=== PATIENT | male | born 1985 | race Caucasian/White ===

== ENCOUNTER 2021-06-04 11:25 | Emergency (ER) | payer OTHER ==
[2021-06-04 12:08] LABS: BILIRUBIN NEGATIVE (NEGATIVE); BLOOD 3+ Ery/uL (NEGATIVE); COLOR YELLOW (YELLOW); GLUCOSE (U) NORMAL (NORMAL); LEUKOCYTES NEGATIVE Leu/uL (NEGATIVE); NITRITE NEGATIVE (NEGATIVE); PROTEIN NEGATIVE (NEGATIVE); SPECIFIC GRAVITY 1.015 (1.001-1.030); UROBILINOGEN 0.2 mg/dL (0.2-1.0); pH 8.5 (5.0-9.0)
[2021-06-04 12:10] LABS: CLARITY CLOUDY (CLEAR)
[2021-06-04 12:16] LABS: AMORPHOUS URATES CRYSTALS LARGE; BACTERIA 1+; URINARY RBC 20-50
[2021-06-04 12:59] LABS: BASOPHIL 0.7 % (0-2); EOSINOPHIL 0.4 % (0-5); HCT 38.6 % (42.0-52.0); HGB 13.3 g/dl (13.2-18.0); LYMPHOCYTE 16.3 % (15-48); MCH 33.2 pg (25.0-31.0); MCHC 34.5 g/dL (32.0-36.0); MCV 96.3 fL (78.0-100.0); MONOCYTE 7.1 % (0-12); MPV 8.9 fL (6.0-9.5); NRBC 0; PLT 212 K/uL (150-400); RBC 4.01 M/uL (4.70-6.00); RDW 12.8 % (11.5-14.0); WBC 5.6 K/uL (4.0-10.5)
[2021-06-04 13:16] LABS: POTASSIUM 3.5 mmol/L (3.5-5.1)
[2021-06-04] MEDS ORDERED: NORCO 5-325 TA1 EACH PO (14:19)
[2021-06-04] MEDS ORDERED: FLOMAX0.4 MG PO (14:19)
== END 2021-06-04 14:30 | disposition home or self-care (01) ==
LOC: FER 11:25
PROVIDERS: Emergency Medicine; Nurse Practitioner Family
DX: N13.2 Hydronephrosis with renal and ureteral calculous obstruction (principal)
CPT/HCPCS: 36415; 80048; 81001; 85025; J1885; J2405; J7030